=== PATIENT | female | born 1970 | race Two or more races ===

== ENCOUNTER 2018-04-12 08:40 | Inpatient (IN) | payer OTHER ==
[2018-04-12 09:08] VITALS: BMI 37.5
--- NOTE | 2018-04-12 09:20 | HP ---
CIWA Score - CIWA Score Nausea/Vomitin-Mild Nausea/No Vomiting Muscle Tremors: 3 Anxiety: 4-Mod. Anxious/Guarded Agitation: 1-Slight > Activity Paroxysmal Sweats: 1-Minimal Palms Moist Orientation: 1-Uncertain about Date Tacttile Disturbances: 1-Very Mild Itch/Numbness Auditory Disturbances: 1-Very Mild Visual Disturbances: 1-Very Mild Sensitivity Headache: 1-Very Mild CIWA-Ar Total Score: 15 Admission ROS S - HPI Chief Complaint: I want detox, I want to stop using Allergies/Adverse Reactions: Allergies Allergy/AdvReac Type Severity Reaction Status Date / Time No Known Allergies Allergy Verified 04/12/18 09:13 History of Present Illness: 48 yo woman here for detox from alcohol, also using crack/cocaine. Reports a long history of alcohol and sometimes heroin use with many stints in detox and rehab - last time here in 2009. Denies seizures, does have black outs. Was in [facility] ED yesterday seeking detox and brought here. Has been off her psychiatric meds for several days stating 'I don't want them'. Patient aware she will not receive clonopin while in [facility]. Exam Limitations: Clinical Condition - Ebola screening Have you traveled outside of the country in the last 21 days: No Have you had contact with anyone from an Ebola affected area: No Have you been sick,other than usual withdrawal symptoms: No Do you have a fever: No - Review of Systems Constitutional: Malaise, Changes in sleep EENT: reports: No Symptoms Reported Respiratory: reports: No Symptoms reported Cardiac: reports: No Symptoms Reported GI: reports: Nausea, Poor Fluid Intake, Indigestion : reports: Frequency, Other (patient reports vaginal discharge - states she was told she has gonorrhea and chlamydia but never got treated and requests treatment) Musculoskeletal: reports: No Symptoms Reported Integumentary: reports: No Symptoms Reported Neuro: reports: Headache Endocrine: reports: No Symptoms Reported Hematology: reports: No Symptoms Reported Psychiatric: reports: Judgement Intact, Mood/Affect Appropiate, Agitated, Anxious Other Systems: Reviewed and Negative Patient History - Patient Medical History Hx Asthma: No Hx Chronic Obstructive Pulmonary Disease (COPD): No Hx Cancer: No Hx Cardiac Disorders: No Hx Hypertension: Yes (borderline, no meds) Hx Hypercholesterolemia: No Hx Pacemaker: No HX Cerebrovascular Accident: No Hx Seizures: No Hx Diabetes: No Hx Gastrointestinal Disorders: No Hx Liver Disease: No Hx Genitourinary Disorders: No Hx Sexually Transmitted Disorders: Yes (possible GC,chlamydia) Hx Renal Disease (ESRD): No Hx Thyroid Disease: No Hx Human Immunodeficiency Virus (HIV): No Hx Hepatitis C: Yes (treated ) Hx Depression: Yes Hx Suicide Attempt: Yes (2014) Hx Bipolar Disorder: Yes Hx Schizophrenia: Yes (on meds) - Patient Surgical History Past Surgical History: Yes Hx Cholecystectomy: Yes (1984) Hx Section: Yes (three ) Hx Orthopedic Surgery: Yes (bilateral bunion surgery 2015; left elbow fracture) Hx Hysterectomy: Yes (2013) - PPD History Previous Implant?: Yes Documented Results: Negative w/o proof Implanted On Prior R Admission?: Yes PPD to be Administered?: Yes - Reproductive History Patient is a Female of Child Bearing Age (11 -55 yrs old): No - Smoking Cessation Smoking history: Current every day smoker Have you smoked in the past 12 months: Yes Aproximately how many cigarettes per day: 20 Initiated information on smoking cessation: Yes 'Breaking Loose' booklet given: 04/12/18 (give on floor) - Substance & Tx. History Hx Alcohol Use: Yes Hx Substance Use: Yes Substance Use Type: Alcohol, Cocaine, Marijuana Hx Substance Use Treatment: Yes (detox, rehab, [facility], [facility], [facility]) - Substances Abused alcohol Route: Oral Frequency: Daily Amount used: 40 sixteen oz beers; 1 pint liquor Age of first use: 17 Date of Last Use: 04/11/18 cocaine Route: Smoking Frequency: Daily Amount used: $400 Age of first use: 22 Date of Last Use: 04/11/18 marijuana Route: Smoking Frequency: Daily Amount used: $60 Age of first use: 17 Date of Last Use: 04/10/18 Family Disease History - Family Disease History Family Disease History: Diabetes: Father (, hx etoh/drugs,), CA: Mother (living, hx cancer), Other: Father, Mother, Sister (one living - no contact), Son (one living - no contact), Daughter (one living - one meningitis) Admission Physical Exam BHS - Vital Signs Vital Signs: Vital Signs - 24 hr 04/12/18 09:00 Temperature 97.7 F Pulse Rate 75 Respiratory 19 Rate Blood Pressure 147/96 - Physical General Appearance: Yes: Nourished, Appropriately Dressed, Moderate Distress, Obese, Irritable, Anxious HEENTM: Yes: EOMI, Hearing grossly Normal, Normocephalic, Normal Voice, Pharynx Normal Respiratory: Yes: Normal Breath Sounds, No Respiratory Distress Neck: Yes: No masses,lesions,Nodules Breast: Yes: Breast Exam Deferred Cardiology: Yes: Regular Rhythm, Regular Rate Abdominal: Yes: Soft, Protuberent Genitourinary: Yes: Frequency Back: Yes: Normal Inspection Musculoskeletal: Yes: Gait Steady, Other (unable to fully extend left elbow ( chronic, hx surgery)) Extremities: Yes: Normal Inspection, Non-Tender Neurological: Yes: Alert, Normal Response, Other (irritable) Integumentary: Yes: Normal Color, Warm Lymphatic: Yes: Within Normal Limits - Addiitonal Findings: Patient Name: Latosha Ventura Date: 1970 Address: [address] [place] [address] Sex: Female Rx Written Rx Dispensed Drug Quantity Days Supply Prescriber Name 04/07/2018 04/07/2018 clonazepam 1 mg tablet 60 30 Elisha Goodwin Pmhnp 03/11/2018 03/11/2018 clonazepam 1 mg tablet 60 30 Buddy, Elisha Pmhnp 02/11/2018 02/11/2018 clonazepam 1 mg tablet 60 30 Goodwin, Elisha Pmhnp 01/14/2018 01/17/2018 clonazepam 1 mg tablet 60 30 Elisha Goodwin Pmhnp 12/17/2017 12/17/2017 clonazepam 1 mg tablet 60 30 Elisha Goodwin Pmhnp 11/21/2017 11/21/2017 clonazepam 1 mg tablet 60 30 GoodwinElisha Pmhnp 10/22/2017 10/22/2017 clonazepam 1 mg tablet 60 30 Goodwin, Elisha Pmhnp 09/17/2017 09/17/2017 clonazepam 1 mg tablet 60 30 Ej, Zachdat - Diagnostic (1) Alcohol dependence with uncomplicated withdrawal Current Visit: Yes Status: Chronic (2) Hepatitis C virus infection cured after antiviral drug therapy Current Visit: Yes Status: Chronic (3) Nicotine dependence Current Visit: Yes Status: Acute Qualifiers: Nicotine product type: cigarettes Substance use status: uncomplicated Qualified Code(s): F17.210 - Nicotine dependence, cigarettes, uncomplicated (4) Borderline systolic HTN Current Visit: Yes Status: Chronic (5) Obesity (BMI 30-39.9) Current Visit: Yes Status: Chronic (6) Concern about STD in female without diagnosis Current Visit: Yes Status: Suspected Comment: will give zithromax 1gm to treat possible GC,chlamydia - patient needs to f/u with her primary and/or ANIMAL CRUELTY INVESTIGATOR Cleared for Admission S - Detox or Rehab [facility] Level of Care: Medically Managed Detox Regimen/Protocol: Librium [facility] Breath Alcohol Content Breath Alcohol Content: 0 Urine Pregancy Test - Result Urine Test Results: Negative- NO Line Present Urine Drug Screen - Results Urine Drug Screen Results: THC-Marijuana, CISCO-Cocaine, TCA-Tricyclic Antidepress
[2018-04-12] MEDS ORDERED: chlordiazePOXIDE HCL 25 MG CAPSULE PO PRN (09:40)
[2018-04-12] MEDS ORDERED: hydrOXYzine PAMOATE 25 MG CAPSULE (FP) PO PRN (09:40)
[2018-04-12] MEDS ORDERED: LOPERAMIDE HCL 2 MG CAPSULE PO PRN (09:40)
[2018-04-12] MEDS ORDERED: IBUPROFEN 400 MG TABLET (FP) PO PRN (09:40)
[2018-04-12] MEDS ORDERED: NICOTINE POLACRILEX 4 MG GUM BC PRN (09:40)
[2018-04-12] MEDS ORDERED: chlordiazePOXIDE HCL 25 MG CAPSULE PO ONE (09:40)
[2018-04-12] MEDS ORDERED: MAGNESIUM HYDROX 2400MG/30ML ORAL SUSPENSION 30 ML CUP PO PRN (09:40)
[2018-04-12] MEDS ORDERED: MAGNESIUM CITRATE 300 ML BOTTLE PO PRN (09:40)
[2018-04-12] MEDS ORDERED: ACETAMINOPHEN 325 MG TABLET (FP) PO PRN (09:40)
[2018-04-12] MEDS ORDERED: MAG HYDROX/AL HYDROX/SIMETH 30 ML UNIT-DOSE CUP PO PRN (09:40)
[2018-04-12] MEDS ORDERED: P-EPHED 60MG/TRIPROLIDI 2.5MG TABLET PO PRN (09:40)
[2018-04-12] MEDS ORDERED: guaiFENesin/D-METHORPHAN HB 10 ML UNIT-DOSE CUPS PO PRN (09:40)
[2018-04-12] MEDS ORDERED: MENTHOL/PHENOL 1 EACH UD MM PRN (09:40)
[2018-04-12] MEDS ORDERED: AZITHROMYCIN 250 MG TABLET PO ONE (11:00)
[2018-04-12] MEDS: chlordiazePOXIDE HCL 25 MG CAPSULE PO SCH ×3 (11:28→22:30)
[2018-04-12] MEDS: PRENATAL VITAMINS W/ FOLIC ACID TABLET (FP) PO SCH (11:32)
[2018-04-12] MEDS ORDERED: MELATONIN 5 MG TABLETS PO PRN (22:00)
[2018-04-12 22:27] LABS: URINE APPEARANCE CLEAR; URINE BILIRUBIN NEGATIVE (<2.0 mg/dL); URINE COLOR LTYELLOW; URINE GLUCOSE (UA) NEGATIVE (NEGATIVE); URINE KETONE NEGATIVE (NEGATIVE); URINE LEUK ESTERASE TRACE (NEGATIVE); URINE NITRITE NEGATIVE (NEGATIVE); URINE PROTEIN NEGATIVE (NEGATIVE); URINE UROBILINOGEN NEGATIVE mg/dL (0.2-1.0)
[2018-04-12] MEDS: THIAMINE HCL 100 MG TABLET (FP) PO SCH (22:31)
[2018-04-12 22:36] LABS: EPI CELLS RARE /HPF (FEW); URINE MUCUS RARE
[2018-04-13] MEDS: chlordiazePOXIDE HCL 25 MG CAPSULE PO SCH (06:31)
--- NOTE | 2018-04-13 08:56 | EKG ---
Test Reason : Blood Pressure : / mmHG Vent. Rate : 068 BPM Atrial Rate : 068 BPM P-R Int : 152 ms QRS Dur : 078 ms QT Int : 398 ms P-R-T Axes : 000 100 106 degrees QTc Int : 423 ms NORMAL SINUS RHYTHM RIGHTWARD AXIS LOW VOLTAGE QRS BORDERLINE ECG NO PREVIOUS ECGS AVAILABLE Confirmed by RAJEEV ROJAS, BALA ([id number]) on 04/13/2018 8:55:26 AM Referred By: Ne Moreira Confirmed By:BALA BOO MD
[2018-04-13 10:20] LABS: HEMOGLOBIN 14.5 GM/dL (10.7-15.3); MCH 32.7 pg (25.7-33.7); MCHC 33.8 g/dl (32.0-36.0); MEAN CELL VOLUME 96.6 fl (80-96); MEAN PLT VOLUME 10.5 fl (7.5-11.1); PLATELET COUNT 235 K/MM3 (134-434); RBC 4.45 M/mm3 (3.60-5.2); RDW 13.1 % (11.6-15.6); WHITE BLOOD COUNT 5.4 K/mm3 (4.0-10.0)
[2018-04-13] MEDS: PRENATAL VITAMINS W/ FOLIC ACID TABLET (FP) PO SCH (10:34)
[2018-04-13 10:35] LABS: CHLORIDE 106 mmol/L (98-107); POTASSIUM 5.3 mmol/L (3.5-5.1); SODIUM 141 mmol/L (136-145)
[2018-04-13 10:48] LABS: ALBUMIN 3.9 g/dl (3.4-5.0); ALK PHOS 161 U/L (45-117); ANION GAP 6 (8-16); BILIRUBIN,TOTAL 0.4 mg/dL (0.2-1.0); BLOOD UREA NITROGEN 14 mg/dL (7-18); CALCIUM 9.6 mg/dL (8.5-10.1); CO2 29 mmol/L (21-32); CREATININE 0.8 mg/dL (0.55-1.02); GLUCOSE,RANDOM 95 mg/dL (74-106); SGOT/AST 12 U/L (15-37); SGPT/ALT 17 U/L (12-78); TOT PROT 7.4 g/dl (6.4-8.2)
[2018-04-13] MEDS ORDERED: chlordiazePOXIDE HCL 25 MG CAPSULE PO SCH (11:00)
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
[2018-04-13] MEDS ORDERED: diazePAM 5 MG TABLET PO PRN (13:43)
[2018-04-13] MEDS ORDERED: diazePAM 5 MG TABLET PO ONE (13:43)
--- NOTE | 2018-04-13 14:11 | PN ---
[facility] CIWA - CIWA Score Nausea/Vomitin-No Nausea/No Vomiting Muscle Tremors: 4-Moderate,w/Arms Extend Anxiety: 5 Agitation: 5 Paroxysmal Sweats: 1-Minimal Palms Moist Orientation: 1-Uncertain about Date Tacttile Disturbances: 1-Very Mild Itch/Numbness Auditory Disturbances: 0-None Visual Disturbances: 0-None Headache: 0-None Present CIWA-Ar Total Score: 17 S Progress Note (SOAP) Subjective: states that priyank is not working for her alcohol detox sweat tremor anxiety restlessness agitative irritable multiple verbal conflict with peers poor boundary Objective: 04/13/18 14:16 Vital Signs Temperature 98.1 F 04/13/18 10:53 Pulse Rate 73 04/13/18 10:53 Respiratory Rate 18 04/13/18 10:53 Blood Pressure 128/83 04/13/18 10:53 O2 Sat by Pulse Oximetry (%) Laboratory Last Values WBC 5.4 K/mm3 (4.0-10.0) 04/13/18 07:40 RBC 4.45 M/mm3 (3.60-5.2) 04/13/18 07:40 Hgb 14.5 GM/dL (10.7-15.3) 04/13/18 07:40 Hct 43.0 % (32.4-45.2) 04/13/18 07:40 MCV 96.6 fl (80-96) H 04/13/18 07:40 MCH 32.7 pg (25.7-33.7) 04/13/18 07:40 MCHC 33.8 g/dl (32.0-36.0) 04/13/18 07:40 RDW 13.1 % (11.6-15.6) 04/13/18 07:40 Plt Count 235 K/MM3 (134-434) 04/13/18 07:40 MPV 10.5 fl (7.5-11.1) 04/13/18 07:40 Sodium 141 mmol/L (136-145) 04/13/18 07:40 Potassium 5.3 mmol/L (3.5-5.1) H 04/13/18 07:40 Chloride 106 mmol/L (98-107) 04/13/18 07:40 Carbon Dioxide 29 mmol/L (21-32) 04/13/18 07:40 Anion Gap 6 (8-16) L 04/13/18 07:40 BUN 14 mg/dL (7-18) 04/13/18 07:40 Creatinine 0.8 mg/dL (0.55-1.02) 04/13/18 07:40 Creat Clearance w eGFR > 60 (>60) 04/13/18 07:40 Random Glucose 95 mg/dL (74-106) 04/13/18 07:40 Calcium 9.6 mg/dL (8.5-10.1) 04/13/18 07:40 Total Bilirubin 0.4 mg/dL (0.2-1.0) 04/13/18 07:40 AST 12 U/L (15-37) L 04/13/18 07:40 ALT 17 U/L (12-78) 04/13/18 07:40 Alkaline Phosphatase 161 U/L (45-117) H 04/13/18 07:40 Total Protein 7.4 g/dl (6.4-8.2) 04/13/18 07:40 Albumin 3.9 g/dl (3.4-5.0) 04/13/18 07:40 Urine Color Ltyellow 04/12/18 Unknown Urine Appearance Clear 04/12/18 Unknown Urine pH 6.0 (5.0-8.0) 04/12/18 Unknown Ur Specific [place] 1.019 (1.001-1.035) 04/12/18 Unknown Urine Protein Negative (NEGATIVE) 04/12/18 Unknown Urine Glucose (UA) Negative (NEGATIVE) 04/12/18 Unknown Urine Ketones Negative (NEGATIVE) 04/12/18 Unknown Urine Blood Negative (NEGATIVE) 04/12/18 Unknown Urine Nitrite Negative (NEGATIVE) 04/12/18 Unknown Urine Bilirubin Negative (<2.0 mg/dL) 04/12/18 Unknown Urine Urobilinogen Negative mg/dL (0.2-1.0) 04/12/18 Unknown Ur Leukocyte Esterase Trace (NEGATIVE) 04/12/18 Unknown Urine WBC (Auto) 2 /hpf (3-5) 04/12/18 Unknown Urine RBC (Auto) 2 /hpf (0-3) 04/12/18 Unknown Ur Epithelial Cells Rare /HPF (FEW) 04/12/18 Unknown Urine Mucus Rare 08/04/18 Unknown HIV 1&2 Antibody Screen Negative 04/13/18 07:40 HIV P24 Antigen Negative 04/13/18 07:40 lab noted repeat K+ Assessment: 04/13/18 14:17 withdrawal sx rule out K+ elevation anxiety Plan: continue detox repeat K+ discontinue librium begin valium detox regimen
[2018-04-13] MEDS ORDERED: diazePAM 5 MG TABLET PO SCH (22:00)
[2018-04-13] MEDS: THIAMINE HCL 100 MG TABLET (FP) PO SCH (22:02)
[2018-04-14] MEDS ORDERED: diazePAM 5 MG TABLET PO SCH (10:00)
[2018-04-14 10:02] VITALS: BP 140/90; PULSE 77; TEMP 97.5
[2018-04-14] MEDS: PRENATAL VITAMINS W/ FOLIC ACID TABLET (FP) PO SCH (10:28)
[2018-04-14] MEDS ORDERED: chlordiazePOXIDE 5 MG CAPSULE PO SCH (11:00)
--- NOTE | 2018-04-14 11:30 | PN ---
BHS Progress Note (SOAP) Subjective: alert,irritable,anxious,interrupted sleep Objective: 04/14/18 11:28 Vital Signs Temperature 97.5 F L 04/14/18 10:01 Pulse Rate 77 04/14/18 10:01 Respiratory Rate 18 04/14/18 10:01 Blood Pressure 140/90 04/14/18 10:01 O2 Sat by Pulse Oximetry (%) 04/14/18 11:28 repeat k is 4.3 Assessment: 04/14/18 11:29 withdrawal symptom Plan: continue detox
--- NOTE | 2018-04-14 11:33 | PN ---
[facility] Progress Note Note: patient did not want to complete treatment,sing release ama,seen by counselor, all attempts to convince patient to stay with no avail,singed release ama
--- NOTE | 2018-04-14 11:42 | DS ---
[facility] Detox Discharge Summary Admission Date: 04/12/18 Discharge Date: 04/14/18 - History Present History: Alcohol Dependence Additional Comments: patient did not want to complete treatment,all attempts to convince patient to stay with no avail, seen by counselor,risk of relapsing explained,patient signed release ama, advise to go to emergency room if medical emergency Pertinent Past History: nicotine dependence obesity bipolar disorder - Physical Exam Results Vital Signs: Vital Signs Temperature 97.5 F L 04/14/18 10:01 Pulse Rate 77 04/14/18 10:01 Respiratory Rate 18 04/14/18 10:01 Blood Pressure 140/90 04/14/18 10:01 O2 Sat by Pulse Oximetry (%) Pertinent Admission Physical Exam Findings: withdrawal signs and symptom Vital Signs Temperature 97.5 F L 04/14/18 10:01 Pulse Rate 77 04/14/18 10:01 Respiratory Rate 18 04/14/18 10:01 Blood Pressure 140/90 04/14/18 10:01 O2 Sat by Pulse Oximetry (%) Laboratory Last Values WBC 5.4 K/mm3 (4.0-10.0) 04/13/18 07:40 RBC 4.45 M/mm3 (3.60-5.2) 04/13/18 07:40 Hgb 14.5 GM/dL (10.7-15.3) 04/13/18 07:40 Hct 43.0 % (32.4-45.2) 04/13/18 07:40 MCV 96.6 fl (80-96) H 04/13/18 07:40 MCH 32.7 pg (25.7-33.7) 04/13/18 07:40 MCHC 33.8 g/dl (32.0-36.0) 04/13/18 07:40 RDW 13.1 % (11.6-15.6) 04/13/18 07:40 Plt Count 235 K/MM3 (134-434) 04/13/18 07:40 MPV 10.5 fl (7.5-11.1) 04/13/18 07:40 Sodium 141 mmol/L (136-145) 04/13/18 07:40 Potassium 4.3 mmol/L (3.5-5.1) 04/14/18 07:00 Chloride 106 mmol/L (98-107) 04/13/18 07:40 Carbon Dioxide 29 mmol/L (21-32) 04/13/18 07:40 Anion Gap 6 (8-16) L 04/13/18 07:40 BUN 14 mg/dL (7-18) 04/13/18 07:40 Creatinine 0.8 mg/dL (0.55-1.02) 04/13/18 07:40 Creat Clearance w eGFR > 60 (>60) 04/13/18 07:40 Random Glucose 95 mg/dL (74-106) 04/13/18 07:40 Calcium 9.6 mg/dL (8.5-10.1) 04/13/18 07:40 Total Bilirubin 0.4 mg/dL (0.2-1.0) 04/13/18 07:40 AST 12 U/L (15-37) L 04/13/18 07:40 ALT 17 U/L (12-78) 04/13/18 07:40 Alkaline Phosphatase 161 U/L (45-117) H 04/13/18 07:40 Total Protein 7.4 g/dl (6.4-8.2) 04/13/18 07:40 Albumin 3.9 g/dl (3.4-5.0) 04/13/18 07:40 Urine Color Ltyellow 04/12/18 Unknown Urine Appearance Clear 04/12/18 Unknown Urine pH 6.0 (5.0-8.0) 04/12/18 Unknown Ur Specific [place] 1.019 (1.001-1.035) 04/12/18 Unknown Urine Protein Negative (NEGATIVE) 04/12/18 Unknown Urine Glucose (UA) Negative (NEGATIVE) 04/12/18 Unknown Urine Ketones Negative (NEGATIVE) 04/12/18 Unknown Urine Blood Negative (NEGATIVE) 04/12/18 Unknown Urine Nitrite Negative (NEGATIVE) 04/12/18 Unknown Urine Bilirubin Negative (<2.0 mg/dL) 04/12/18 Unknown Urine Urobilinogen Negative mg/dL (0.2-1.0) 04/12/18 Unknown Ur Leukocyte Esterase Trace (NEGATIVE) 04/12/18 Unknown Urine WBC (Auto) 2 /hpf (3-5) 04/12/18 Unknown Urine RBC (Auto) 2 /hpf (0-3) 04/12/18 Unknown Ur Epithelial Cells Rare /HPF (FEW) 04/12/18 Unknown Urine Mucus Rare 04/12/18 Unknown RPR Titer Nonreactive (NONREACTIVE) 04/13/18 07:40 HIV 1&2 Antibody Screen Negative 04/13/18 07:40 HIV P24 Antigen Negative 04/13/18 07:40 - Medication Discharge Medications: Ambulatory Orders Diphenhydramine [Benadryl -] 100 mg PO BID 04/12/18 Quetiapine Fumarate "Xr" [Seroquel Xr -] 800 mg PO HS 04/12/18 Topiramate [Topamax -] 200 mg PO DAILY 04/12/18 Venlafaxine HCl ER [Effexor Xr -] 75 mg PO DAILY 04/12/18 - Diagnosis (1) Alcohol dependence with uncomplicated withdrawal Current Visit: Yes Status: Chronic (2) Bipolar 1 disorder, depressed Current Visit: Yes Status: Acute (3) Nicotine dependence Current Visit: Yes Status: Acute Qualifiers: Nicotine product type: cigarettes Substance use status: uncomplicated Qualified Code(s): F17.210 - Nicotine dependence, cigarettes, uncomplicated (4) Hepatitis C virus infection cured after antiviral drug therapy Current Visit: Yes Status: Chronic (5) Obesity (BMI 30-39.9) Current Visit: Yes Status: Chronic - AMA Did Patient Leave Against Medical Advice: Yes
[2018-04-15] MEDS ORDERED: chlordiazePOXIDE HCL 10 MG CAPSULE PO SCH (11:00)
[2018-04-16] MEDS ORDERED: diazePAM 5 MG TABLET PO SCH (07:00)
== END 2018-04-14 11:34 | disposition left against medical advice (07) | DRG 770 ==
LOC: YASAS 08:40 → Y6N 10:30
PROVIDERS: ADMIT Surgery; ATTEND Surgery
PROC: HZ2ZZZZ Detoxification Services for Substance Abuse Treatment (ICD-10-PCS; principal; 2018-04-12)
DX: F10.230 Alcohol dependence with withdrawal, uncomplicated (principal); F14.20 Cocaine dependence, uncomplicated; F12.20 Cannabis dependence, uncomplicated; F17.210 Nicotine dependence, cigarettes, uncomplicated; F31.89 Other bipolar disorder; F41.9 Anxiety disorder, unspecified; B18.2 Chronic viral hepatitis C; R03.0 Elevated blood-pressure reading, without diagnosis of hypertension; E66.9 Obesity, unspecified; Z68.37 Body mass index [BMI] 37.0-37.9, adult; Z87.42 Personal history of other diseases of the female genital tract; Z90.710 Acquired absence of both cervix and uterus; Z91.5 Personal history of self-harm
CPT/HCPCS: 36415; 80053; 81003; 81015; 84132; 85027; 86593; 87389; 93005; 93010